=== PATIENT | female | born 1995 | race Caucasian/White ===

== ENCOUNTER 2017-10-05 23:19 | Emergency (ER) | payer OTHER ==
[~2017-10-05] VITALS: Ht 172.7 cm; Wt 114.0 kg
[2017-10-05 23:32] VITALS: BP 151/97
--- NOTE | 2017-10-05 23:35 | NUR ---
PATIENT AMBULATED TO ER BED 4.
--- NOTE | 2017-10-05 23:37 | NUR ---
PATIENT IS A 22 Y/O FEMALE WHO PRESENTS TO THE ED C/O LEFT SHOULDER PAIN. PT STATES, "I PLAY BASKETBALL AND I THINK I HURT IT." PT REPORTS 4/10 ACHING LEFT SHOULDER PAIN THAT DOES NOT RADIATE. PT DENIES CP, SOB, N/V/D. NO OBVIOUS DEFORMITY NOTED. CMS INTACT. PT AAOX4, RR EVEN/UNLABORED. PT REPOSITIONED FOR COMFORT, BED IN LOWEST POSITION. ER MD DR. ROMAN NOTIFIED. WILL CONTINUE TO MONITOR.
[2017-10-06 00:04] VITALS: BP 145/82
--- NOTE | 2017-10-06 00:04 | NUR ---
Patient discharged with v/s stable. Written and verbal after care instructions given and explained. Patient alert, oriented and verbalized understanding of instructions. Ambulatory with steady gait. All questions addressed prior to discharge. ID band removed. Patient advised to follow up with PMD. Rx of NAPROSYN 500MG given. Patient educated on indication of medication including possible reaction and side effects. Opportunity to ask questions provided and answered.
== END 2017-10-06 00:04 | disposition home or self-care (01) ==
LOC: MED 23:19
DX: S43.402A Unspecified sprain of left shoulder joint, initial encounter (principal); J45.909 Unspecified asthma, uncomplicated; Z90.89 Acquired absence of other organs; X58.XXXA Exposure to other specified factors, initial encounter; Y93.67 Activity, basketball; Y92.89 Other specified places as the place of occurrence of the external cause; Y99.8 Other external cause status
CPT/HCPCS: 99283